=== PATIENT | male | born 1945 | race Caucasian/White ===

== ENCOUNTER 2018-02-13 07:40 | Day surgery (SDC) | payer MEDICARE ==
[2018-02-08 16:32] VITALS: BMI 28.2
[~2018-02-13 07:40] MED LIST: LACTATED RINGERS 1,000 ML IV SCH; LIDOCAINE 1% 20 ML VIAL (10MG/ML) FOR IV START INTRADERMA PRN
[2018-02-13 08:12] VITALS: TEMP 97.7
[2018-02-13 08:14] LABS: Glucose,Whole Blood 115 mg/dL (75-99)
[2018-02-13] MEDS ORDERED: PROPOFOL 10 MG/ML 20 ML VIAL IV ONE (08:33)
[2018-02-13] MEDS ORDERED: IV FLUID CONTINUATION 325 ML IV ONE (08:59)
--- NOTE | 2018-02-13 09:12 | P.PCN ---
Date of Procedure: 02/13/18 Procedure(s) Performed: BRIEF HISTORY: Patient is a 72-year-old [id number], white male scheduled for an elective colonoscopy as a part of screening for colorectal neoplasia. PROCEDURE PERFORMED: Colonoscopy with snare polypectomy. PREOPERATIVE DIAGNOSIS: Screening for colon cancer. IV sedation per Anesthesia. PROCEDURE: After informed consent was obtained, the patient, was brought into the endoscopy unit. IV sedation was administered by Anesthesia under continuous monitoring. Digital rectal examination was normal. Initially the Olympus CF- 160 flexible video colonoscope was then inserted in the rectum, gradually advanced into the cecum without any difficulty. Careful examination was performed as the scope was gradually being withdrawn. Ileocecal valve and the appendiceal orifice were visualized and appeared normal. Prep was excellent. In the cecum there was a 7 mm sessile polyp removed by snare polypectomy. In the hepatic flexure there was a 1 cm polyp removed by snare polypectomy. In the transverse colon there were 3 polyps of which measured 5 mm and small in the last one 1 cm broad-based removed by snare polypectomy. In the descending colon there was a 1 cm polyp removed by snare polypectomy. The, sigmoid colon, and rectum appeared normal. Retroflexion was performed in the rectum and no lesions were seen. The patient tolerated the procedure well. IMPRESSION: 7 mm cecal polyp status post polypectomy 1 cm hepatic flexure polyp status post polypectomy 5 mm 2 and 1 cm transverse colon polyps status post polypectomy 1 cm descending colon polyp status post polypectomy RECOMMENDATIONS: Findings of this examination were discussed with the patient as well as his family. He was advised to follow with the biopsy results. If the biopsy shows a tubular adenoma, he can have a repeat colonoscopy in 3 years.
[2018-02-13 09:16] VITALS: BP 119/73; PULSE 64; RESP 18
== END 2018-02-13 09:40 | disposition home or self-care (01) ==
LOC: ORWHC2ENDO 07:40
PROVIDERS: ATTEND Internal Medicine Gastroenterology
DX: Z12.11 Encounter for screening for malignant neoplasm of colon (principal); D12.0 Benign neoplasm of cecum; D12.4 Benign neoplasm of descending colon; D12.3 Benign neoplasm of transverse colon; I10 Essential (primary) hypertension; E11.9 Type 2 diabetes mellitus without complications; M06.9 Rheumatoid arthritis, unspecified; Z79.82 Long term (current) use of aspirin; Z79.4 Long term (current) use of insulin; Z79.899 Other long term (current) drug therapy; Z88.2 Allergy status to sulfonamides; Z87.891 Personal history of nicotine dependence
CPT/HCPCS: 88305; 45385; J2704

== ENCOUNTER → 2019-04-16 | Outpatient (CLI) | payer MEDICARE ==
--- NOTE | 2019-04-16 11:36 | XR ---
EXAMINATION TYPE: XR chest 2V DATE OF EXAM: 04/16/2019 COMPARISON: 08/04/2016 INDICATION: TB screening TECHNIQUE: Frontal and lateral views of the chest are obtained. FINDINGS: The heart size is normal. The pulmonary vasculature is normal. The lungs are clear. IMPRESSION: 1. No acute pulmonary process.
== END | disposition home or self-care (01) ==
LOC: RADXRMAIN 10:12
PROVIDERS: ATTEND Internal Medicine Rheumatology
DX: Z11.1 Encounter for screening for respiratory tuberculosis (principal)
CPT/HCPCS: 71046

== ENCOUNTER 2021-02-16 06:28 | Day surgery (SDC) | payer MEDICARE ==
[2021-02-11 13:48] VITALS: BMI 28.0
[~2021-02-16 06:28] MED LIST changes: -LACTATED RINGERS 1,000 ML IV SCH; +LIDOCAINE 1% (10MG/ML) FOR IV START INTRADERMA PRN; -LIDOCAINE 1% 20 ML VIAL (10MG/ML) FOR IV START INTRADERMA PRN
[2021-02-16] MEDS: LACTATED RINGERS 1,000 ML IV SCH ×2 (06:57→07:05)
[2021-02-16 07:09] VITALS: RESP 16; TEMP 98
[2021-02-16 07:23] LABS: Glucose,Whole Blood 169 mg/dL (75-99)
[2021-02-16] MEDS ORDERED: PROPOFOL 10 MG/ML 20 ML VIAL IV ONE (07:37)
--- NOTE | 2021-02-16 08:09 | P.PCN ---
Date of Procedure: 02/16/21 Procedure(s) Performed: BRIEF HISTORY: Patient is a 75-year-old pleasant white male scheduled for an elective colonoscopy as a part of evaluation of prior history of colon polyps. Last colonoscopy was 3 years ago and was noted to have multiple colon polyps as revealed adenoma. PROCEDURE PERFORMED: Colonoscopy snare polypectomy. PREOPERATIVE DIAGNOSIS: History of colon polyps. IV sedation per Anesthesia. PROCEDURE: After informed consent was obtained, the patient, was brought into the endoscopy unit. IV sedation was administered by Anesthesia under continuous monitoring. Digital rectal examination was normal. Initially the Olympus CF-160 flexible video colonoscope was then inserted in the rectum, gradually advanced into the cecum without any difficulty. Careful examination was performed as the scope was gradually being withdrawn. Ileocecal valve and the appendiceal orifice were visualized and appeared normal. Prep was excellent. Mucosa of the cecum appeared normal. In the ascending colon colon there was a 1 cm broad-based polyp removed by snare polypectomy. Hepatic flexure there was a 5 mm sessile polyp removed by snare polypectomy and in the proximal transverse colon there was another 5 mm polyp that was removed by snare polypectomy. Rest of the, ascending colon, transverse colon, descending colon, sigmoid colon, and rectum appeared normal. Retroflexion was performed in the rectum and no lesions were seen. The patient tolerated the procedure well. IMPRESSION: 1 cm ascending colon polyp status post polypectomy 5 mm hepatic flexure polyp status post snare polypectomy 5 mm transverse colon polyp status post snare polypectomy RECOMMENDATIONS: Findings of this examination were discussed with the patient as well as a family. He was advised to follow with the biopsy results. If the biopsy shows adenoma he can have a repeat colonoscopy in 3 years.
[2021-02-16 08:39] VITALS: BP 126/74; PULSE 74
== END 2021-02-16 08:57 | disposition home or self-care (01) ==
LOC: ORWHC2ENDO 06:28
PROVIDERS: ATTEND Internal Medicine Gastroenterology
DX: Z12.11 Encounter for screening for malignant neoplasm of colon (principal); D12.2 Benign neoplasm of ascending colon; D12.3 Benign neoplasm of transverse colon; Z86.010 Personal history of colon polyps; I10 Essential (primary) hypertension; E11.9 Type 2 diabetes mellitus without complications; M06.9 Rheumatoid arthritis, unspecified; Z79.82 Long term (current) use of aspirin; Z79.4 Long term (current) use of insulin; Z79.899 Other long term (current) drug therapy; Z88.2 Allergy status to sulfonamides
CPT/HCPCS: 88305; 45385; J2704